=== PATIENT | male | born 1965 | race Caucasian/White ===

== ENCOUNTER 2019-12-01 21:04 | Inpatient (IN) | payer OTHER, SELFPAY ==
[2019-12-01] VITALS (7 sets, daily range): BP systolic 140–202; BP diastolic 89–122; PULSE 83–100; RESP 16–18; TEMP 36.6; O2SAT 92–99; BMI 27.2
--- NOTE | 2019-12-01 21:12 | XRR_ITS ---
PROCEDURE INFORMATION: Exam: XR Chest, 1 View Exam date and time: 12/01/2019 9:13 PM Age: 54 years old Clinical indication: Chest pain; Type not specified TECHNIQUE: Imaging protocol: XR of the chest Views: 1 view. COMPARISON: No relevant prior studies available. FINDINGS: Lungs: Left discoid atelectasis and/or scarring. Pleural space: Unremarkable. No pleural effusion. No pneumothorax. Heart/Mediastinum: Unremarkable. No cardiomegaly. Bones/joints: Unremarkable. XR/XR chest 1V portable [id number] IMPRESSION: No acute findings.
--- NOTE | 2019-12-01 21:12 | ECG_ITS ---
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 Measurements Intervals [place] Rate: 79 P: 45 MO: 162 QRS: -19 QRSD: 110 T: -6 QT: 368 QTc: 423 Interpretive Statements SINUS RHYTHM ST ELEVATION IN LATERAL LEADS, CONSIDER MYOCARDIAL INJURY Acute [place] No previous ECG available for comparison Electronically Signed On 12-02-2019 8:34:36 CDT by Marta Goncalves M.D. [email or web address].[email or web address]/store/[id number] f
--- NOTE | 2019-12-01 21:17 | ECG_ITS ---
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 Measurements Intervals [place] Rate: 79 P: 45 OR: 162 QRS: -19 QRSD: 110 T: -6 QT: 368 QTc: 423 Interpretive Statements SINUS RHYTHM ST SEGMENT ELEVATION IN LATERAL LEADS, CONSIDER MYOCARDIAL INJURY ACUTE [place] No previous ECG available for comparison Electronically Signed On 12-02-2019 8:35:41 CDT by Marta Goncalves M.D. [email or web address]. [email or web address]. ([email or web address]) montgomery va medical centerGlenRose Instrumentsuniversity hospitals [facility].[employer]/store/NU/[id number] f
[2019-12-01] MEDS: nitroglycerin 0.4 mg sublingual Tablet SUBLINGUAL ×3 (21:26→21:36)
[2019-12-01 21:30] LABS: Basophils # 0.1 10^3/uL (0.0-0.1); Basophils % 0.8 %; Eosinophils # 0.4 10^3/uL (0.0-0.8); Eosinophils % 3.3 %; Hematocrit 49.4 % (42.0-52.0); Hemoglobin 16.7 g/dL (11.7-16.6); Lymphocytes # 4.7 10^3/uL (0.8-4.8); Lymphocytes % 43.3 %; Mean Corpuscular HGB Conc 33.8 g/dL (30.0-36.0); Mean Corpuscular Hemoglobin 29.9 pg (28.0-34.0); Mean Corpuscular Volume 88.4 fL (80-94); Mean Platelet Volume 10.1 fL (7.4-10.4); Monocytes # 1.2 10^3/uL (0.2-0.9); Monocytes % 10.9 %; Neutrophils # 4.48 10^3/uL (1.8-7.7); Neutrophils % 41.4 %; Nucleated Red Blood Cells % 0 %; Platelet Count 249 10^3/cmm (130-400); Red Blood Count 5.59 10^6/uL (4.1-5.3); Red Cell Distribution Width 13.3 % (12.1-15.1); White Blood Count 10.8 10^3/uL (4.0-10.0)
[2019-12-01] MEDS: aspirin 325 mg Tablet PO (21:31)
[2019-12-01 21:45] LABS: D Dimer 0.28 ug/mIFEU (0-0.59)
[2019-12-01 21:47] LABS: Alanine Aminotransferase 28 U/L (0-41); Alkaline Phosphatase 106 IU/L (40-130); Aspartate Amino Transferase 29 U/L (0-40); Blood Urea Nitrogen 23 mg/dL (6-20); Calcium 10.1 mg/dL (8.5-10.5); Carbon Dioxide 23 mmol/L (22-29); Chloride 101 mmol/L (98-107); Creatinine Clr Calc Pharmacy 72.7539; Globulin 2.7 g/dL (1.3-4.6); Glomerular Filtration Rate 57.7 mL/min (90-130); Glucose 118 mg/dL (65-115); Osmolality Calculated 282 mOsm/kg (285-295); Sodium 137 mmol/L (136-145); Total Bilirubin 0.3 mg/dL (0.15-1.2); Total Protein 7.7 g/dL (6.6-8.7)
[2019-12-01] MEDS: ticagrelor 90 mg Tablet 180 MG PO (21:47)
[2019-12-01] MEDS: morphine 4 mg/mL SDV 1 mL IVP (21:47)
[2019-12-01] MEDS: ondansetron 2 mg/ML SDV 2 mL 4 MG IVP (21:48)
[2019-12-01 21:51] LABS: Troponin(5th) Baseline 8 ng/L (0-15)
[2019-12-01 21:52] LABS: Anion Gap 16.6 (5-19); Potassium 3.6 mmol/L (3.5-5.1)
[2019-12-01] MEDS: heparin 5,000 unit/mL INJ 1 mL 4000 UNIT IVP (21:52)
--- NOTE | 2019-12-01 21:58 | XACV_ITS ---
Exam Room: [facility] Ht: 175 cm Wt: 88 kg BSA: 2.10 m2 Gender: Male : 1965 Exam Priority: Routine Procedure(s): Procedure Description: Diagnostic procedure Procedure Description: PCI procedure Procedure Description: Coronary angiography Procedure Description: Drug Eluting Coronary Stent Procedure Description: PTCA Diagnostic Cath Status: Emergency Diagnostic Findings LM has 0% stenosis. CX has 0% stenosis. RCA has 0% stenosis. pLAD: Moderate 50% stenosis, RICHARD: 3 flow. Mid Left Anterior Descending Coronary Artery: Severe 85% stenosis, 10.00 mm in length, RICHARD: 0 flow. 1st Diagonal Coronary Artery: Severe 95% stenosis, RICHARD: 0 flow. Coronary angiography shows right dominance. PCI Status: Emergency PCI Indication: NSTE - ACS Interventional Findings IV heparin was administered. We obtained right radial access. We attempted to perform diagnostic angiography using [place] catheter. Because of subclavian tortuosity, horizontal aorta, and superior takeoff of the left main artery we could not engage it. We have attempted engagement using a XB 3.0 guide catheter but engagement was not possible. We attempted using AL 0.75 and JL 3.5 guide catheters however were not successful in engaging the left main artery. At this time we switched access to right femoral artery. 6 Portuguese sheath was introduced. We used XB 3.0 guide catheter to engage the left main artery. A BMW 0.014 guidewire was used to cross the lesion in mid LAD. We predilated the lesion using 2.5 x 12 mm semi-compliant balloon. This was followed by deployment of 2.75 x 12 mm ESDRAS. At this time we turned our attention to proximal first diagonal artery. BMW wire was directed to the first diagonal artery. We used 2.5 mm ESDRAS to treat the lesion. At this time we removed the guidewire and performed the final angiogram which showed RICHARD-3 flow in all arteries and no significant residual stenosis. Guidewire and guide catheter were removed. Sheath was sutured for removal later. Right radial sheath was removed and TR band was applied for hemostasis. Patient left the Rounder And Backer in stable condition. Mid Left Anterior Descending Coronary Artery: 85% stenosis treated with AB TREK 2.50X12 RX BALLOON and MDT R RIP 2.75X12 ESDRAS. 0% residual stenosis, RICHARD: 3 flow. Successful intervention. 1st Diagonal Coronary Artery: 95% stenosis treated with MDT R RIP 2.5X15 ESDRAS. 0% residual stenosis, RICHARD: 3 flow. Conclusions Non-ST elevation myocardial infarction. First diagonal artery had 95%, hazy culprit lesion proximally. Severe stenosis of mid LAD. Moderate stenosis of proximal LAD. There is severe coronary artery disease with one vessel disease. Mid Left Anterior Descending Coronary Artery was successfully treated with Balloon and Drug Eluting Stent. 1st Diagonal Coronary Artery was treated with Drug Eluting Stent. Recommendations Continue dual antiplatelet therapy with aspirin and Brilinta for at least 12 months. Obtain echocardiogram. High intensity statin therapy and beta-anna therapy. Patient has residual moderate stenosis of proximal LAD, we will recommend to obtain stress test as outpatient. Cardiac rehabilitation referral. 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 Patient is from [place], he will need to follow-up for cardiac rehabilitation, primary care physician visit and cardiology visit in his hometown. Diagnostic RX Recommendation: PCI w/o planned CABG Clinical Evaluation EBL: 5mL-10mL Procedural Details Procedure Consent Obtained. Admit Source: Emergency department. Pre-Procedure Time Out. Does the consent match the physician's order: N/A Emergent. Accurate & Complete Informed Consent: N/A Emergent. Inpatient/Outpatient History & Physical on Chart: N/A Emergent. If H&P is completed, is and addenduem needed: N/A Emergent; If yes, is the addendum complete: N/A Emergent. The risks, benefits, and alternatives of sedation and/or procedure were discussed by physician. The patient agrees to continue. Procedure started. Physician arrived. Physician scrubbed in. Correct Patient: Yes; Correct Procedure: Yes; Correct Site: Yes; Correct Patient Position: Yes; Correct Supplies: Yes; Dried Flammable Prep: Yes; Blood Products Available: N/A;. IV Site on Arrival: 20 gauge in the right hand. IV Site on Arrival: 20 gauge in the left hand. PERRLA. Strong, equal hand construction area manager bilaterally. Lungs clear x 5 lobes. Oxygen started at 2liters/min via nasal canula. right radial was prepped with chloroprep then draped in the usual sterile fashion. bilateral groins was prepped with chloroprep then draped in the usual sterile fashion. Lidocaine 1% infiltrated to the right radial. Arterial access obtained. A TR 6FR Radial TIG 4.0 110cm was advanced over the wire and used for Left coronary angiography. Multiple views taken of right coronary artery. Catheter redirected to the RCA. Inventory is CRD 6FR XB 3 GUIDE. Wire removed. Wire reinserted, catheter removed. Anatomy difficult to engage. Inventory is CRD 6FR JL 3 GUIDE. 6 [place] JL 4 guide catheter was inserted over the wire. Wire out. Baseline sample Acquired. HR: 88 BPM. Guide catheter out. Inventory is CRD 6FR AL .75 GUIDE. 6 [place] AL 0.75 guide catheter was inserted over the wire. Wire out. wire and catheter removed. Sheath will remain in place. Moving to groin. Lidocaine 1% infiltrated to the right groin. Arterial access obtained with micropuncture set. Micropuncture used, then exchanged for 6F sheath. Exchange wire removed. BMW guidewire was advanced through the guide catheter to lesion in the mid LAD. Inflation number : 1 A AB TREK 2.50X12 RX BALLOON was prepped and advanced across the Mid LAD , then inflated to 10 EFFIE for 0:26 seconds. Balloon out. Balloon inserted to lesion in the mid LAD. Inflation Number : 2 A TOYIN Blackman RIP 2.75X12 ESDRAS -Lot Number# [id number] Exp Date: 07/01/2021 was prepped and advanced across the Mid LAD. The stent was deployed at 14 EFFIE for 0:23 seconds. Results checked. Balloon out. BMW repositioned to diaganol. BMW removed. BMW reinserted. Inflation number : 1 A AB TREK 2.50X12 RX BALLOON was prepped and advanced across the 1st Diag1 , then inflated to 8 EFFIE for 0:24 seconds. Inflation number: 2 The AB TREK 2.50X12 RX BALLOON was reinflated across the 1st Diag1, to 8 EFFIE for 0:07 seconds. Balloon out. Inflation Number : 1 A MDT R RIP 2.5X15 ESDRAS -Lot Number# [id number] Exp Date: 07/07/2021 was prepped and advanced across the 1st Diag. The stent was deployed at 12 EFFIE for 0:23 seconds. Results checked. Deployment balloon out. Wire out. Running ACT. Catheter removed. ACT drawn. Results 201 seconds. Therapeutic limits - pre-heparin administration 90-150 seconds and monitoring heparin during a vascular procedure >250 seconds. Total IV fluids: 85 mL. Medication's Wasted: Lidocaine 1% = 6 mL. Physician's scrubbed out. Medication's Wasted: Nitro = 49.6 mg. Medication's Wasted: Other = Versed 1mg. Medication's Wasted: Heparin = 2000 units. No VTE prophylaxis required. Estimated blood loss: 5mL-10mL. Procedure completed. Complications: N/A. Post-op diagnosis: STEMI. PCI Indication: STEMI. [facility] Clinical Fraility Score: 3: Managing Well. Rounder And Backer Indications: ACS <= 24 hours. Current diagnosis: NSTEMI with persistent chest pain. Chest Pain Symptom Assessment: Atypical Angina. Cardiovascular Instability: No. TR band placed. Hemostasis obtained. Sheath(s) sutured into position with 2-0 silk and sterile 4x4's and Op-site applied over the site. No oozing or signs and symptoms of hematoma noted. A TR Band was successful obtaining hemostatsis at the Right Radial artery insertion site. A Suture was successful obtaining hemostatsis at the Right Femoral artery insertion site. Patient transferred by bed to 1st floor. Vital chart was stopped. Site: Right Femoral artery Sheath Size: 6 Fr Hemostasis Method: Suture Hemostasis Success: Successful Site: Right Radial artery Sheath Size: 6 Fr Hemostasis Method: TR Band Hemostasis Success: Successful Procedure Medications Start: 10:25 PM Stop: 10:25 PM Medication: Versed Amount: 1 mg Route: I.V. Start: 10:25 PM Stop: 10:25 PM Medication: Fentanyl Amount: 50 mcg Route: I.V. Start: 10:30 PM Stop: 10:30 PM Medication: Versed Amount: 1 mg Route: I.V. Start: 10:39 PM Stop: 10:39 PM Medication: Versed Amount: 1 mg Route: I.V. Start: 10:39 PM Stop: 10:39 PM Medication: Fentanyl Amount: 25 mcg Route: I.V. Start: 10:46 PM Stop: 10:46 PM Medication: Versed Amount: 1 mg Route: I.V. Start: 10:47 PM Stop: 10:47 PM Medication: Fentanyl Amount: 25 mcg Route: I.V. Start: 10:55 PM Stop: 10:55 PM Medication: Heparin Amount: 3000 units Route: I.V. Start: 11:01 PM Stop: 11:01 PM Medication: Versed Amount: 1 mg Route: I.V. Start: 11:13 PM Stop: 11:13 PM Medication: Nitrogylcerin Amount: 200 mcg Route: I.C. Start: 11:17 PM Stop: 11:17 PM Medication: Versed Amount: 1 mg Route: I.V. I, the attending physician, have reviewed and verified all procedure medications. Yes, all medications given per verbal order History/Risk Factors Hypertension: No Dyslipidemia: No Peripheral Arterial Disease (PAD): No Myocardial Infarction (IN): No Obesity: No Renal Disease: No Prior Interventions PCI: No CABG: No Valve Surgery: No Report Signatures Finalized by:Brandon Acosta MD on 12/02/2019 10:28:40 AM
--- NOTE | 2019-12-01 22:02 | W.PM.OPSUD ---
Surgery/Procedure H&P Update DATE OF PROCEDURE: December 01, 2019 DATE H&P PERFORMED: 12/01/19 H&P UPDATE INFORMATION: I have examined patient prior to procedure PREOP DIAGNOSIS: STEMI PLANNED PROCEDURE: Left heart cath/PCI if indicated PATIENT REASSESSED PRIOR TO SEDATION, WITH NO CHANGE NOTED: Yes PHYSICAL EXAM: alert, oriented x 3, clear to auscultation bilaterally and regular rate & rhythm AIRWAY EVAL/ANESTHESIA PLAN: ASA II, Risks, benefits & alternatives of sedation and/or procedure discussed and Patient agrees to continue as planned
--- NOTE | 2019-12-01 22:03 | PM.HP ---
Providers/Chief Complaint Admitting Physician: Brandon Acosta Chief Complaint: NSTEMI History of Present Illness Brian Rivero is a 54 year old male with no significant known history presented with chest pain since 5 PM(5 hours prior to presentation). Patient is visiting from [place], he started having chest pain at 5 PM initially. After about an hour the pain subsided but came back about 2 hours before presentation to the emergency room. Initially his blood pressure was high(over 200 systolic), came down to 140/96. His EKG had ST elevation in the lateral leads with reciprocal changes in the inferior leads. On angiogram, diagonal artery showed a 95% stenosis with antegrade flow and mid LAD had a 85% stenosis. He underwent PCI of both diagonal and mid LAD lesions. Chest pain is much improved. Patient has not been seeing a physician and had no prior cardiac work up. Currently not on any medications. Review of Systems Narrative: CONSTITUTIONAL: No fever chills weight loss or gain or night sweats. [] HEENT: Normocephalic, atraumatic.[] RESPIRATORY: No cough, sputum, hemoptysis or wheezing.[] CARDIOVASCULAR: Chest pain GI: no nausea vomiting diarrhea. [] ARTIFICIAL BREAST FABRICATOR: No numbness, tingling, weakness or loss of function in any part of the body. [] MUSCULOSKELETAL: No knee or joint pain or rashes. [] Medications/Allergies Home Medications Medication Instructions Recorded Confirmed Last Taken Type No Known Home Medications 12/01/19 12/01/19 Unknown History Allergies Allergy/AdvReac Type Severity Reaction Status Date / Time Penicillins Allergy Unknown Verified 12/01/19 21:12 PFSH Acute PFSH: Family History (Updated 12/02/19 @ 06:52 by Brandon Acosta M.D) Father CAD (coronary artery disease) Social History Smoking and tobacco status: never smoked Vitals/I&O/Wt Last Vital Signs Temp 97.8 F 12/01/19 21:10 Pulse 98 12/01/19 21:37 Resp 18 12/01/19 21:47 BP 140/96 12/01/19 21:37 Pulse Ox 95 12/01/19 21:47 Weight last 48 hrs Weight 190 lb Physical Exam Narrative: EXAM NARRATIVE: GENERAL: Patient is alert, awake and oriented x3. [] NECK: No jugular vein distension. [] HEENT: No cyanosis. No icterus. No pallor. [] HEART: Regular S1 and S2. No murmur, rub or gallop. [] LUNGS: Clear to auscultate bilaterally. [] ABDOMEN: Soft, nontender and nondistended. Positive bowel sounds. No guarding, rebound or tenderness. [] CENTRAL NERVOUS SYSTEM: Grossly nonfocal. [] EXTREMITIES: Lower extremities with no significant edema bilaterally. Pulses palpable in the lower extremities, both dorsalis pedis and posterior tibial. 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 On angiogram, antegrade flow was present in the diagonal (culprit with 95% stenosis) and LAD. S/p successful PCI with ESDRAS x 2 (both prox Diagonal and mid LAD) Continue aspirin and Brilinta. Echocardiogram ordered Will initiate lopressor 25 mg bid High intensity Statin therapy Attestations Medical Necessity Statement*: Patient had myocardial infarction and underwent PCI overnight. Will stay for 2 midnights Coding Level of Care Code Acute Outside Sales Advertising Executive for Alessia Fwd Diagnoses NSTEMI (non-ST elevated myocardial infarction) I21.4 Hypertension I10
--- NOTE | 2019-12-01 23:12 | ECG_ITS ---
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 Measurements Intervals [place] Rate: 87 P: 35 SC: 170 QRS: -7 QRSD: 108 T: -9 QT: 371 QTc: 447 Interpretive Statements SINUS RHYTHM ST ELEVATION, CONSIDER LATERAL INJURY [MARKED ST ELEVATION W/O NORMALLY INFLECTED T WAVE IN I/aVL/V5/V6] ACUTE HI Compared to ECG 12/01/2019 21:17:01 Myocardial infarct finding now present ST (T wave) deviation still present Electronically Signed On 12-02-2019 8:50:08 CDT by Marta Goncalves M.D. [id number] f
[2019-12-02] VITALS (38 sets, daily range): BP systolic 96–167; BP diastolic 64–109; PULSE 64–97; RESP 10–25; TEMP 36.6–36.8; O2SAT 91–99
--- NOTE | 2019-12-02 00:41 | PC.NURSE ---
Patient received from gold leaf laborer at 0005 via bed. Patient is s/p C with PCIx2. Patient has TR band in place to right wrist and sheath attached to a pressure bag to right groin. Both sites are currently free from bleeding or hematoma formation. Instructed patient on site care and restrictions. Discussed plan for removal of devices and importance, potential side effects of new medications. Patient verbalized understanding complete understanding. Will continue to reinforce instructions.
[2019-12-02 01:39] LABS: Troponin T (5th) Once 655 ng/L (0-15)
--- NOTE | 2019-12-02 01:49 | W.ED.CHESTPA ---
HPI - Chest Pain General: Chief Complaint: Chest Pain Stated Complaint: cp Time Seen by Provider: 12/01/19 21:14 History of Present Illness: HPI narrative: 84-year-old male here visiting from [place]. He began to get chest pain about an hour prior to arrival, radiating into his back. He is not had a pain like this before. He has no prior history of coronary disease. He does not see physician normally. He is short of breath. He rates his pain an 8 on arrival. MD complaint: chest pain Onset (ago): minute(s) (60 or so) Timing of current episode: constant Prior episodes: No Onset: during rest Pain location: substernal and left chest Pain radiation: back Severity: severe Quality: aching and heaviness Relieving factors: nothing Exacerbating factors: nothing Associated symptoms: Reports diaphoresis, dyspnea and nausea; Deny abdominal pain, fever(s), leg edema, syncope or vomiting Treatment prior to arrival: none Review of Systems Const: Reports: diaphoresis; Denies: fever(s) Eyes: Denies: change in vision or blurry vision ENMT: Denies: swelling of lips/tongue, bleeding gums, epistaxis or sinus pain Card: Denies: syncope Resp: Reports: dyspnea GI: Reports: nausea; Denies: abdominal pain or vomiting : Denies: difficulty urinating or hematuria Musc: Reports: back pain; Denies: neck pain, joint redness or joint warmth Skin/Breast: Denies: rash or erythema Neuro: Denies: headache(s), dizziness or vertigo Psych: Denies: anxiety Physical Exam Const: GENERAL APPEARANCE: in distress and ill appearing ORIENTATION/CONSCIOUSNESS: Yes oriented to person, Yes oriented to place and Yes oriented to time HENMT: COMMON NORMALS: normocephalic, external ears normal and Normal external nose present HEAD & SCALP: normocephalic FACE & SINUS: normal facial exam NOSE: Normal external nose present and No nasal discharge present EXTERNAL EAR: Yes external ears normal MOUTH: tongue normal TEETH & GINGIVA: no abnormal tooth and associated gingiva THROAT: posterior oropharynx normal; no peritonsillar mass Eye: COMMON NORMALS: Equal, round and reactive pupils present, EOMs intact bilaterally and conjunctivae normal EYELID: eyelids normal CONJUNCTIVA: Yes conjunctivae normal PUPIL: Yes Equal, round and reactive pupils present Neck/C-Spine: GENERAL: No tracheal deviation Chest: COMMONS NORMALS: normal inspection of the chest CHEST: No tenderness Resp: COMMON NORMALS: clear to auscultation bilaterally EFFORT & INSPECTION: No tachypneic, No respiratory distress, No retractions, No uses accessory muscles and No tracheal deviation AUSCULTATION: clear to auscultation bilaterally, no rhonchi, no wheezes and lung sounds not diminished Cardio: COMMON NORMALS: regular rate and regular rhythm RATE: regular rate RHYTHM: regular rhythm HEART SOUNDS: no murmurs PERIPHERAL PULSES: radial pulses present GI: INSPECTION: No abdominal distension AUSCULTATION: No Hyperactive bowel sounds present and No Hypoactive bowel sounds present PALPATION: No Guarding due to palpation present (GI) and No Rigid due to palpation PERCUSSION: no dullness to percussion and no tympanic to percussion Neuro: SENSORIUM/ORIENTATION: Yes oriented to person, Yes oriented to place and Yes oriented to time Psych: COMMON NORMALS: mental status grossly normal Skin: COMMON NORMALS: no rashes or lesions noted GENERAL SKIN EXAM: no rashes or lesions noted Course Consultations: Consultation #1: Dave Time: 21:28 Vital Signs: Vital signs: Vital Signs Temperature 97.8 F 12/01/19 21:10 Pulse Rate 91 12/02/19 01:30 Respiratory Rate 13 12/02/19 01:30 Blood Pressure 107/80 12/02/19 01:30 Pulse Oximetry 96 12/02/19 01:30 MDM - Chest Pain MDM Narrative: Medical decision making narrative: 54-year-old patient presenting with chest discomfort, radiating to his back, shortness of breath. He is visiting from out of town, but states he has no prior history of coronary disease. Initial EKG on arrival revealed mild ST elevation in lead I and aVL. There is ST depression with T wave inversion in 2 3 and aVF. Image of the EKG was sent to cardiology. He was quite hypertensive on arrival, but nitroglycerin seemed to improve his pressure. It did not improve his pain significantly, but did help some. With improvement of his blood pressure, his EKG did not improve. In fact his ST elevation and depression became more pronounced over several minutes. His initial EKG was shown to cardiology after seeing it in interviewing the patient. After suggestion of lowering the pressure and repeating the EKG, the second and third EKG were shown to the marine engine driver he decided to call a STEMI alert overhead and activate the [employer]. He received aspirin, nitroglycerin, morphine, Zofran, heparin, Brilinta in the ER prior to matriculating to the [employer]. Lab Data: Labs: Lab Results 12/01/19 12/01/19 12/01/19 Range/Units 00:50 21:25 21:25 WBC 10.8 H (4.0-10.0) 10^3/ uL RBC 5.59 H (4.1-5.3) 10^6/u L Hgb 16.7 H (11.7-16.6) g/dL Hct 49.4 (42.0-52.0) % MCV 88.4 (80-94) fL MCH 29.9 (28.0-34.0) pg MCHC 33.8 (30.0-36.0) g/dL RDW 13.3 (12.1-15.1) % Plt Count 249 (130-400) 10^3/c mm MPV 10.1 (7.4-10.4) fL Neut % (Auto) 41.4 % Lymph % (Auto) 43.3 % Imperial % (Auto) 10.9 % Eos % (Auto) 3.3 % Baso % (Auto) 0.8 % Neut # (Auto) 4.48 (1.8-7.7) 10^3/u L Lymph # (Auto) 4.7 (0.8-4.8) 10^3/u L Imperial # (Auto) 1.2 H (0.2-0.9) 10^3/u L Eos # (Auto) 0.4 (0.0-0.8) 10^3/u L Baso # (Auto) 0.1 (0.0-0.1) 10^3/u L Nucleated RBC % (a uto) 0 % Nucleated RBCs # 0.0 /100WBC D-Dimer 0.28 (0-0.59) ug/mIFE U Sodium (136-145) mmol/L Potassium (3.5-5.1) mmol/L Chloride (98-107) mmol/L Carbon Dioxide (22-29) mmol/L Anion Gap (5-19) BUN (6-20) mg/dL Creatinine (0.7-1.2) mg/dL GFR Calculation (90-130) mL/min Glucose (65-115) mg/dL Calculated Osmolal ity (285-295) mOsm/k g Calcium (8.5-10.5) mg/dL Total Bilirubin (0.15-1.2) mg/dL AST (0-40) U/L ALT (0-41) U/L Alkaline Phosphata se (40-130) IU/L Troponin T Baselin e (0-15) ng/L Troponin T 120 Min levelock Cancelled Delta Troponin T Cancelled Total Protein (6.6-8.7) g/dL Albumin (3.5-5.2) g/dL Globulin (1.3-4.6) g/dL 12/01/19 12/01/19 Range/Units 21:25 21:25 WBC (4.0-10.0) 10^3/ uL RBC (4.1-5.3) 10^6/u L Hgb (11.7-16.6) g/dL Hct (42.0-52.0) % MCV (80-94) fL MCH (28.0-34.0) pg MCHC (30.0-36.0) g/dL RDW (12.1-15.1) % Plt Count (130-400) 10^3/c mm MPV (7.4-10.4) fL Neut % (Auto) % Lymph % (Auto) % Imperial % (Auto) % Eos % (Auto) % Baso % (Auto) % Neut # (Auto) (1.8-7.7) 10^3/u L Lymph # (Auto) (0.8-4.8) 10^3/u L Imperial # (Auto) (0.2-0.9) 10^3/u L Eos # (Auto) (0.0-0.8) 10^3/u L Baso # (Auto) (0.0-0.1) 10^3/u L Nucleated RBC % (a uto) % Nucleated RBCs # /100WBC D-Dimer (0-0.59) ug/mIFE U Sodium 137 (136-145) mmol/L Potassium 3.6 (3.5-5.1) mmol/L Chloride 101 (98-107) mmol/L Carbon Dioxide 23 (22-29) mmol/L Anion Gap 16.6 (5-19) BUN 23 H (6-20) mg/dL Creatinine 1.3 H (0.7-1.2) mg/dL GFR Calculation 57.7 L (90-130) mL/min Glucose 118 H (65-115) mg/dL Calculated Osmolal ity 282 L (285-295) mOsm/k g Calcium 10.1 (8.5-10.5) mg/dL Total Bilirubin 0.3 (0.15-1.2) mg/dL AST 29 (0-40) U/L ALT 28 (0-41) U/L Alkaline Phosphata se 106 (40-130) IU/L Troponin T Baselin e 8 (0-15) ng/L Troponin T 120 Min levelock Delta Troponin T Total Protein 7.7 (6.6-8.7) g/dL Albumin 5.0 (3.5-5.2) g/dL Globulin 2.7 (1.3-4.6) g/dL Critical Care Time Critical Care Time: Critical Care Time: Yes Total Critical Care Time: 30 Attestation: This case had a high probability of a clinically significant, sudden, or life threatening deterioration of this patient's condition which required my full and direct attention, intervention and personal management. Discharge Plan Discharge Patient Disposition: Admitted As Inpatient Admit Provider: Bridgette Graham Clinical Impression: ST elevation [place] (STEMI) Qualifiers: Involved coronary artery: unspecified coronary artery Qualified Code(s): I21.3 - ST elevation (STEMI) myocardial infarction of unspecified site Condition: Stable Interventions: ED Discharge Assessment Last Done: 12/01/19 22:19 ED Charges Last Done: 12/01/19 22:19 Discharge Date/Time: 12/01/19 22:17 Coding Level of Care Code ED Pain Management Nurse for Alessia Fwd Exam Comprehensive
[2019-12-02 02:05] LABS: Partial Thromboplastin Time 152.9 SECONDS (23.9-36.7)
[2019-12-02] MEDS: ALPRAZolam 0.25 mg Tablet PO ×2 (02:09→13:23)
[2019-12-02 03:21] LABS: Basophils % 0.4 %; Eosinophils # 0.1 10^3/uL (0.0-0.8); Eosinophils % 0.6 %; Hematocrit 44.9 % (42.0-52.0); Hemoglobin 14.9 g/dL (11.7-16.6); Lymphocytes # 2.3 10^3/uL (0.8-4.8); Lymphocytes % 22.8 %; Mean Corpuscular HGB Conc 33.2 g/dL (30.0-36.0); Mean Corpuscular Volume 90.3 fL (80-94); Mean Platelet Volume 9.7 fL (7.4-10.4); Monocytes % 10.1 %; Neutrophils # 6.67 10^3/uL (1.8-7.7); Neutrophils % 65.8 %; Nucleated Red Blood Cells % 0 %; Platelet Count 203 10^3/cmm (130-400); Red Blood Count 4.97 10^6/uL (4.1-5.3); Red Cell Distribution Width 13.5 % (12.1-15.1); White Blood Count 10.1 10^3/uL (4.0-10.0)
[2019-12-02 03:38] LABS: Partial Thromboplastin Time 40.5 SECONDS (23.9-36.7)
[2019-12-02] MEDS: fentaNYL 50 mcg/mL INJ 2mL IVP (03:54)
[2019-12-02 04:03] LABS: Troponin 5 6HR 2321 ng/L (0-15); Troponin 5 6HR Delta 2313 ng/L (0-12)
[2019-12-02 04:04] LABS: Blood Urea Nitrogen 18 mg/dL (6-20); Calcium 8.4 mg/dL (8.5-10.5); Carbon Dioxide 26 mmol/L (22-29); Glucose 120 mg/dL (65-115)
[2019-12-02 04:16] LABS: Anion Gap 13.4 (5-19); Chloride 101 mmol/L (98-107); Osmolality Calculated 280 mOsm/kg (285-295); Potassium 4.4 mmol/L (3.5-5.1); Sodium 136 mmol/L (136-145)
--- NOTE | 2019-12-02 04:42 | PC.NURSE ---
Initiated sheath removal at 0404 per protocol. Hemostasis achieved immediately. Maintained pressure for 20min. VS monitored q5 and remained WNL. Cleaned, covered site with 2x2 and bio-occlusive dressing. No s/s of bleeding or hematoma formation observed. Patient tolerated procedure well. Also began removing air from TR band at 0400. Band remains in place at this time due to slight oozing. Re-instilled 2ml of air. No continued bleeding or hematoma formation to right wrist. Instructed patient on site care and restrictions. Patient verbalized complete understanding.
--- NOTE | 2019-12-02 05:14 | PC.NURSE ---
TR Band TR Band off at this time. No s/s of bleeding or hematoma formation observed. Cleaned site. Applied folded 2x2 and bio-occlusive dressing. Wrapped gently with coban as a reminder to patient to not to use his wrist. Reinforced instruction regarding site care and restrictions. Patient verbalized complete understanding. Right groin dressing remains c,d,i at this time with no s/s of bleeding or hematoma formation observed.
--- NOTE | 2019-12-02 05:55 | PC.NURSE ---
Observed 19 beat run of v-tach on telemetry monitoring. Patient states, I can feel that but denies any other symptoms. Informed Dr Goncalves. Received order to check magnesium level this morning and stated, most likely re-perfusion related to post PCI placement. Strip printed and placed in chart.
[2019-12-02 06:43] LABS: Magnesium 2.2 mg/dL (1.7-2.3)
--- NOTE | 2019-12-02 08:49 | ECG_ITS ---
[facility] Test Date: 2019-12-02 Pat Name: Brian Rivero Department: Room: 105 Gender: Male Rrt: : 1965 Requested By: Brandon Acosta Order Number: [id number] Payam MD: Marta Goncalves M.D. Measurements Intervals [place] Rate: 73 P: 21 WA: 171 QRS: 41 QRSD: 121 T: 57 QT: 384 QTc: 425 Interpretive Statements SINUS RHYTHM MODERATE INTRAVENTRICULAR CONDUCTION DELAY [110+ ms QRS DURATION] Compared to ECG 12/01/2019 21:34:53 Intraventricular conduction delay now present ST (T wave) deviation no longer present Myocardial infarct finding no longer present Electronically Signed On 12-02-2019 9:07:54 CDT by Marta Goncalves M.D. [id number]
[2019-12-02] MEDS: aspirin 81 mg EC Tablet PO (09:28)
[2019-12-02] MEDS: ticagrelor 90 mg Tablet PO ×2 (09:28→18:27)
[2019-12-02] MEDS: metoprolol tartrate 25 mg Tablet PO ×2 (09:29→18:26)
--- NOTE | 2019-12-02 09:47 | USCV_ITS ---
Brian Rivero Age: 54 Gender: M : 1965 Exam Date: 12/02/2019 10:44 Ordering Phys: Brandon Acosta M.D ([email or web address]) Technologist: Connie Kruger Exam Location: [facility] [place] Indication: Post IA BP: / HR: 75 Rhythm: Sinus Technical Quality: Adequate MEASUREMENTS (Male / Female) Normal Values 2D ECHO LV Ejection Fraction MOD 2C 51.2 % LV Ejection Fraction 2C AL 50.5 % FINDINGS Left Ventricle LV systolic function is mildly reduced with EF of 40-45%. There is moderate to severe hypokinesis of the basal to mid anterolateral wall, and mild to moderate hypokinesis of the mid inferolateral wall. Right Ventricle Right Atrium Left Atrium Mitral Valve Aortic Valve Tricuspid Valve Pulmonic Valve Pericardium Aorta CONCLUSIONS This was a limited echo for assessment of regional wall motion and LV function. LV function is mildly reduced with EF of 40-45%. There is moderate to severe hypokinesis of basal to mid anterolateral wall, and mild to moderate hypokinesis of mid inferior lateral wall. Brandon Acosta MD (Electronically Signed) Final Date: 03 December 2019 07:53 S
--- NOTE | 2019-12-02 13:00 | PC.NURSE ---
Anxiety Pt stated he felt anxious and can't catch his breath upon waking up from sleep. He felt a little fluttering in his chest and pressure. Pt noted to have frequent PVC's. Vital signs stable. Offered Xanax as ordered PRN.
--- NOTE | 2019-12-02 15:30 | PC.NURSE ---
Accelerated Idioventricular Rhythm Pt had a run of 14 beat-145 bpm then back to Sinus rhythm after 6 sec. Pt just woke up from sleep, wide awake in bed. He stated he had chest pressure and achy pain in between shoulders rated at -3/10 pain scale. BP-122/86; HR-76, SR; spO2 is 94% on RA. Assisted pt in sitting up in bed, Pt stated the chest pressure and achy pain is not there. notified via phone. Will Keep monitoring.
--- NOTE | 2019-12-02 16:30 | PC.NURSE ---
at bedside has questions regarding pt's plan and treatment prior to discharge. I discuss to that pt was agreeable to get his new meds upon [place] at [facility] [place] [facility]. We offered meds to bed. verbalizes understanding. Called and talk to thru phone regarding pt's plan and treatment. verbalizes appreciation and understanding.
--- NOTE | 2019-12-02 18:34 | PC.NURSE ---
Patient stated his achy back pain ease down when he position himself to side. Pt is laying on his left lateral side. Looked comfortable. Instructed pt to call nurse if any worsening of chest pain and back pain. pt verbalizes understanding.
[2019-12-02] MEDS: atorvastatin 40 mg Tablet 80 MG PO (20:46)
[2019-12-02] MEDS: temazepam 15 mg Capsule PO (20:51)
--- NOTE | 2019-12-02 21:50 | P.PN_ITS ---
Subjective Subjective: Interval history: Patient is s/p PCI to proximal First diagonal artery and mid LAD. Patient has been doing well. Still complains of 2/10 chest discomfort. EKG changes have resolved.Overnight he had 3 episodes of NSVT. No pain or swelling at the femoral and radial access sites. Medications: Reviewed: Yes Vitals/I&O/Wt Last Vital Signs Temp 98.2 F 12/02/19 19:10 Pulse 75 12/02/19 19:10 Resp 14 12/02/19 19:10 BP 130/89 12/02/19 19:10 Pulse Ox 97 12/02/19 19:10 12/02/19 12/02/19 12/02/19 06:59 14:59 22:59 Intake Total 360 / 360 240 / 600 Output Total 625 / 625 Balance -625 / -625 360 / 360 240 / 600 Weight last 48 hrs Weight 190 lb Physical Exam Narrative: EXAM NARRATIVE: GENERAL: Patient is alert, awake and oriented x3. [] NECK: No jugular vein distension. [] HEENT: No cyanosis. No icterus. No pallor. [] HEART: Regular S1 and S2. No murmur, rub or gallop. [] LUNGS: Clear to auscultate bilaterally. [] ABDOMEN: Soft, nontender and nondistended. Positive bowel sounds. No guarding, rebound or tenderness. [] CENTRAL NERVOUS SYSTEM: Grossly nonfocal. [] EXTREMITIES: Lower extremities with no significant edema bilaterally. Pulses palpable in the lower extremities, both dorsalis pedis and posterior tibial. [] Data : 12/02/19 03:12 12/02/19 03:12 A&P Assessment and plan (1) NSTEMI (non-ST elevated myocardial infarction): Status: Acute (2) Hypertension: Status: Acute Patient's chest pain is much improved. Likely anxiety assoicated. EKG changes have resolved. He is hemodynamically stable. Continue aspirin and Brilinta. Echocardiogram done, was limited quality study (showed mildly reduced EF), pending limited echo with contrast to assess wall motion abnormality. Started on lopressor 25 mg bid High intensity Statin therapy Patient has residual prox to mid LAD moderate stenosis, will recommend obtaining stress test as outpatient (patient is from [place] and will be moving back after discharge) Will need outpatient cardiac rehab Attestations Medical Necessity Statement*: Patient will need continued hospitalization, are is expected to cross 2 midnights, post [place] care Coding Level of Care Code Acute Dermatologist Managing Partner for Chg Fwd Diagnoses NSTEMI (non-ST elevated myocardial infarction) I21.4 Hypertension I10
--- NOTE | 2019-12-02 23:42 | USCV_ITS ---
Brian Rivero Age: 54 Gender: M : 1965 Exam Date: 12/02/2019 07:13 Ordering Phys: Brandon Acosta M.D ([email or web address]) Technologist: Connie Kruger [place] [facility] [place]ication: Post [place] BP: 112 / 71 HR: 76 Rhythm: Sinus Technical Quality: Fair MEASUREMENTS (Male / Female) Normal Values 2D ECHO LV Diastolic Diameter PLAX 3.9 cm 4.2 - 5.9 / 3.9 - 5.3 cm LV Systolic Diameter PLAX 2.8 cm LV Chamber Size 3.2 cm IVS Diastolic Thickness 1.2 cm 0.6 - 1.0 / 0.6 - 0.9 cm IVS Systolic Thickness 1.9 cm LVPW Diastolic Thickness 0.9 cm 0.6 - 1.0 / 0.6 - 0.9 cm LVPW Systolic Thickness 1.2 cm RV Chamber Size 2.4 cm LVOT Diameter 2.1 cm LV Ejection Fraction 2D Teich 56.1 % LV Ejection Fraction MOD 2C 71.5 % LV Ejection Fraction 2C AL 70.8 % LA Diameter 4.1 cm LA Width 2.2 cm LA Height 5.0 cm RA Width 2.1 cm RA Height 4.4 cm Aorta at Sinotubular Diameter 2.5 cm M-MODE LV Diastolic Diameter MM 5.7 cm 4.2 - 5.9 / 3.9 - 5.3 cm LV Systolic Diameter MM 3.6 cm LV Ejection Fraction MM Teich 65.1 % IVS Diastolic Thickness MM 0.9 cm 0.6 - 1.0 / 0.6 - 0.9 cm IVS Systolic Thickness MM 1.4 cm LVPW Diastolic Thickness MM 1.3 cm 0.6 - 1.0 / 0.6 - 0.9 cm LVPW Systolic Thickness MM 2.0 cm Aortic Annulus Diameter 3.2 cm LA Ao Ratio MM 1.3 MV E Point Septal Separation 0.7 cm DOPPLER AV Peak Velocity 124.0 cm/s LVOT Peak Velocity 83.0 cm/s AV Area Cont Eq vti 2.5 cm squared AV Area Cont Eq pk 2.3 cm squared MV Area PHT 3.4 cm squared Mitral E to A Ratio 0.9 MV E' Velocity 9.0 cm/s Mitral E to MV E' Ratio 6.3 Mitral E to LV E' Lateral Ratio 5.6 Mitral E to LV E' Septal Ratio 7.3 TR Peak Velocity 246.0 cm/s TR Peak Gradient 24.1 mmHg TV Peak E Velocity 55.0 cm/s PV Peak Velocity 57.0 cm/s RV Acceleration Time 0.1 s RV Ejection Time 0.3 s RV AcT/ET 0.3 FINDINGS Left Ventricle Normal left ventricular size and wall thickness. Grossly LV systolic function is mildly reduced. Wall motion can not be completely assessed because of poor visualization. Normal diastolic filling pattern. Right Ventricle The right ventricle is normal in size and function. Right Atrium The right atrium is normal in size. Left Atrium The left atrium is normal in size. Mitral Valve Structurally normal mitral valve without significant stenosis or prolapse. There is no mitral regurgitation. Aortic Valve Aortic sclerosis is noted without stenosis. There is no aortic regurgitation. Tricuspid Valve Structurally normal tricuspid valve without significant stenosis or regurgitation. RVSP is normal Pulmonic Valve Grossly normal pulmonic valve. Pericardium Normal pericardium without effusion. Aorta Normal ascending aorta dimension. CONCLUSIONS Technically limited study Grossly, mildly reduced LV function. Wall motion can not be assessed because of limited visualization. Normal diastolic function Recommend limited echo with contrast to assess the LV function Brandon Acosta MD (Electronically Signed) Final Date: 02 December 2019 09:44 S
[2019-12-03 03:18] VITALS: BP 110/68; PULSE 76; RESP 19; TEMP 36.7; O2SAT 96
--- NOTE | 2019-12-03 05:52 | PC.NURSE ---
Patient has had a uneventful shift. Patient has rested well and remains alert and oriented, Patient has had no complaints of pain. Will continue to monitor.
[2019-12-03 07:03] VITALS: BP 119/81; PULSE 78; RESP 18; TEMP 36.9; O2SAT 97
--- NOTE | 2019-12-03 08:26 | PM.DCS ---
Discharge Providers Date of Admission: 12/01/19 23:40 Date of Discharge: December 03, 2019 Attending Provider at Admission: Brandon Acosta MD Attending Provider at Discharge: Brandon Acosta MD Diagnoses at Discharge Discharge Diagnosis (1) NSTEMI (non-ST elevated myocardial infarction): Status: Acute (2) Hypertension: Status: Acute Reason for Visit Reason for Visit: NSTEMI Hospital Course Hospital Course: 54-year-old man with no known significant past medical history was visiting from [place] when on evening of 12/01/2019 started having chest pain. Patient presented to the hospital 4-5 hours after onset of chest discomfort. His initial blood pressure was very high. He showed ST elevation transiently in lateral leads. After normalization of blood pressure, EKG was repeated that showed persistent ST changes. Team Primary Care Physician was activated and he underwent left heart cath that showed 95% stenosis of proximal first diagonal artery which was the culprit for his MD. There was a mid LAD 85% stenosis as well. He underwent PCI to both first diagonal and mid LAD. There is proximal to mid LAD moderate stenosis which is about 50%. Patient was notified of this moderate stenosis, and was recommended to establish care with a extension service supervisor in his hometown. He will most likely need stress test to rule out ischemia because of this moderate stenosis. Post procedure EKG changes resolved. Chest pain improved significantly. His echocardiogram showed mildly reduced EF of 40-45%. He had few episodes of NSVT on quality assurance monitor chassis. He was put on beta-anna. On day of discharge patient was in stable condition, without any chest pain or breathing difficulty. He is also on aspirin, Brilinta, high intensity atorvastatin and lisinopril as well. Physical Exam Narrative: EXAM NARRATIVE: GENERAL: Patient is alert, awake and oriented x3. [] NECK: No jugular vein distension. [] HEENT: No cyanosis. No icterus. No pallor. [] HEART: Regular S1 and S2. No murmur, rub or gallop. [] LUNGS: Clear to auscultate bilaterally. [] ABDOMEN: Soft, nontender and nondistended. Positive bowel sounds. No guarding, rebound or tenderness. [] CENTRAL NERVOUS SYSTEM: Grossly nonfocal. [] EXTREMITIES: Lower extremities with no edema bilaterally. Pulses palpable in the lower extremities, both dorsalis pedis and posterior tibial. [] Discharge Data Data Completed and Pending: Completed Studies During Hospitalization Category Date Time Status EDUCATIONAL MANAGER request for service Stat Exams 12/01/19 21:58 Completed XR chest 1V sebas ble [id number] Stat Exams 12/01/19 21:12 Completed CV echo complete* [id number] Routine Ultrasound 12/02/19 23:42 Completed CV echo lmt wo/w contras [id number] Rout ine Ultrasound 12/02/19 09:47 Completed US/CV paperwork R outine Ultrasound 12/02/19 Completed Procedures Performed: Left heart cath, percutaneous coronary intervention of first diagonal artery had mid LAD. Vitals: Last Vital Signs Temp 98.4 F 12/03/19 07:03 Pulse 78 12/03/19 07:03 Resp 18 12/03/19 07:03 BP 119/81 12/03/19 07:03 Pulse Ox 97 12/03/19 07:03 Discharge Plan Discharge Patient Disposition: Home Condition: Stable Prescriptions: New atorvastatin 40 mg Tablet 80 mg PO BEDTIME Qty: 30 RF: 3 aspirin 81 mg Tablet,Delayed Release (Dr/Ec) 81 mg PO DAILY Qty: 90 RF: 3 metoprolol tartrate 25 mg Tablet 25 mg PO BID Qty: 60 RF: 3 Brilinta 90 mg Tablet 90 mg PO BID Qty: 60 RF: 4 lisinopril 2.5 mg tablet 2.5 mg PO DAILY Qty: 30 RF: 3 Discharge Orders: Discharge Order (Routine); Ordered 12/03/19 Ordered By: Brandon Acosta Discharge Diet: Cardiac, Low Salt and Low Cholesterol Discharge Activity: Increase activity as tolerated Patient Instructions: Metoprolol (By mouth), Lisinopril (By mouth), Aspirin (By mouth), Atorvastatin (By mouth), Ticagrelor (By mouth), Myocardial Infarction (DC), Chest Pain Stoplight, Post Angiogram Home Care Instructions Activity Restrictions/Additional Instructions: Establish care with cardiology at your local town, please consult cardiac rehab at your local hospital or facility Discharge Date/Time: 12/03/19 12:57 Discharge Attestations Time Spent in Discharge Care*: greater than 30 min Specific Discharge Activities: Specific discharge activities: educating patient, educating and/or supporting family/caregiver, documenting/other paperwork and evaluating patient/reviewing data Status at Discharge: Cognitive status at discharge: cognitively intact, Behavioral status at discharge: cooperative, Functional status at discharge: independent ambulation Overall status at discharge: patient is back to baseline Quality Metrics Clinical Quality Measures During this hospital stay, did patient experience: None Coding Level of Care Code Acute Clinical Manager Home Care for Jocelyng Fwd Diagnoses NSTEMI (non-ST elevated myocardial infarction) I21.4 Hypertension I10
--- NOTE | 2019-12-03 08:43 | PC.NURSE ---
Call received from Dr Acosta with instructions to monitor patients HR until noon then follow through with discharge instructions
[2019-12-03] MEDS: metoprolol tartrate 25 mg Tablet PO (08:53)
[2019-12-03] MEDS: aspirin 81 mg EC Tablet PO (08:53)
[2019-12-03] MEDS: ticagrelor 90 mg Tablet PO (08:53)
[2019-12-03 10:38] VITALS: BP 130/76; PULSE 76; RESP 22; TEMP 36.7; O2SAT 94
[2019-12-03 12:23] VITALS: BP 130/76; PULSE 76; RESP 22; O2SAT 94
[2019-12-03 12:26] VITALS: TEMP 36.7
--- NOTE | 2019-12-03 12:27 | PC.NURSE ---
Called Dr Acosta at 1223 to verify patient is ready for discharge. Dr. Acosta agreed that the patient was safe to go home and proceed with discharge instructions.
--- NOTE | 2019-12-03 13:00 | PC.ADMIT ---
[facility] [facility] Admission Note: The patient,Brian Rivero,54 y/o, was given written information regarding hospital policies, unit procedures and contact persons. Patient's smoking status: never smoked. Vital Signs - 8 hr 12/03/19 07:03 12/03/19 10:38 12/03/19 12:23 Temperature 98.4 F 98.1 F Pulse Rate 78 76 76 Respiratory Rate 18 22 H 22 H Blood Pressure 119/81 130/76 130/76 Pulse Oximetry 97 94 94 12/03/19 12:26 Temperature 98.0 F Pulse Rate Respiratory Rate Blood Pressure Pulse Oximetry
--- NOTE | 2019-12-03 13:01 | PC.NURSE ---
Patient discharged home and left via w/c from [facility] with all personal belongings and discharge instructions at 1257. Patient was transported to ED exit door to private vehicle via w/c where spouse was waiting for patient. IV's were discontinued, patient tolerated well. Discharge instructions, new medications, and activity restrictions were explained to patient, patient verbalized understanding of all discharge instructions.
== END 2019-12-03 12:57 | disposition home or self-care (01) | DRG 247 ==
LOC: ER 21:33 → CCL 22:02 → CSU 23:41
PROVIDERS: Internal Medicine; Internal Medicine Cardiovascular Disease; Admitting Provider Internal Medicine Cardiovascular Disease; Emergency Provider Emergency Medicine; Visit Provider Internal Medicine Cardiovascular Disease
DX: I21.4 Non-ST elevation (NSTEMI) myocardial infarction (principal); I10 Essential (primary) hypertension
CPT/HCPCS: 12345; 71045; 80048; 80053; 83735; 84484; 85025; 85347; 85378; 85730; 93005; 93306; 93308; 93454; 96375; 99283; C1725; C1769; C1874; C1887; C1894; C8924; C9606; J1644; J2250; J2270; J2405; J3010; J3490; J7030; Q9967